=== PATIENT | male | born 1975 | race Two or more races ===

== ENCOUNTER → 2024-03-14 | Outpatient (CLI) | payer BC, SELFPAY ==
[2024-03-14 08:56] LABS: Prostate Specific Antigen 0.98 ng/mL (0-4.00)
[2024-03-14 08:57] LABS: Alanine Aminotransferase 32 U/L (10-49); Albumin, Serum 4.3 gm/dL (3.5-5.0); Albumin/Globulin Ratio 1.6 (1.2-2.2); Alkaline Phosphatase 81 U/L (46-116); Anion Gap 6 (7-16); Aspartate Amino Transferase 22 U/L (0-34); BUN/Creatinine Ratio 18 Ratio (12-20); Bilirubin,Total 1.2 mg/dL (0.3-1.2); Blood Urea Nitrogen 16 mg/dL (9-23); Calcium 9.5 mg/dL (8.3-10.6); Calcium (Corrected) 9.5 mg/dL (8.5-10.1); Carbon Dioxide 28.4 mMol/L (20.0-31.0); Cardiac Risk Estimate 4.4 RATIO (4.0-6.7); Chloride 105 mMol/L (98-107); Cholesterol 185 mg/dL (132-200); Creatinine (Component) 0.9 mg/dL (0.6-1.3); Globulin 2.7 gm/dL (2.3-3.5); Glucose 104 mg/dL (74-106); HDL Cholesterol 42 mg/dL (40-60); LDL Cholesterol,Calculated 120 mg/dL (0-130); Osmolality,Calculated 278 (275-295); Potassium 4.6 mMol/L (3.4-5.1); Sodium 139 mMol/L (136-145); Triglycerides 115 mg/dL (30-150); eGFR > 60 See Note
== END | disposition home or self-care (01) ==
LOC: COPL 06:53
PROVIDERS: PCP Family Medicine; Referring Provider Family Medicine; Visit Provider Family Medicine
DX: Z13.1 Encounter for screening for diabetes mellitus (principal); E78.1 Pure hyperglyceridemia; Z12.11 Encounter for screening for malignant neoplasm of colon
CPT/HCPCS: 36415; 80053; 80061; 84153

== ENCOUNTER → 2024-03-22 | Outpatient (CLI) | payer BC, SELFPAY ==
[2024-03-22 09:22] LABS: OBS Card Expiration Date 2026-09; OBS Card Lot # 23001; OBS Performed By LAB; OBS QC OK? Yes
[2024-03-22 11:09] LABS: OBS Developer Lot # 23003; Occult Blood, Stool Negative (Negative)
== END | disposition home or self-care (01) ==
LOC: SLDO 09:06
PROVIDERS: Referring Provider Family Medicine; Visit Provider Family Medicine
DX: Z12.11 Encounter for screening for malignant neoplasm of colon (principal)
CPT/HCPCS: 82270

== ENCOUNTER 2024-05-20 16:44 | Emergency (ER) | payer BC, SELFPAY ==
[2024-05-20 16:45] VITALS: BMI 27.3
[2024-05-20 17:35] VITALS: BP 115/74; PULSE 77; RESP 18; TEMP 37; O2SAT 97
--- NOTE | 2024-05-20 17:48 | XR_ITS ---
Examination: CT brain head without contrast. 2-D sagittal coronal reconstructions Date and time of exam: May 20, 2024 1759 hrs. Indications: Headaches beginning 2 days ago CTDI: vol (mGy):50.2 DLP: (mGycm):958 Technique: Multiple CT axial sections of the brain have been obtained, 5 mm slice thickness. Contrast has not been administered. 2-D sagittal, coronal reconstructions have been obtained Low dose protocols were performed. One or more of the following dose reduction techniques were used; automated exposure control, adjustment of the mA and/or KV according to patient size, use of iterative reconstruction technique. Findings: No significant ventricular enlargement. Intra-axial or extra-axial hemorrhage density is not seen. No mass effect or midline shift Basal cisterns are not remarkable. Fourth ventricle is midline. Cranial vault intact. Impression: Negative for acute hemorrhage, mass effect or midline shift Advise clinical correlation and follow-up accordingly
--- NOTE | 2024-05-20 17:49 | EDRME_ITS ---
Rapid Medical Screening Exam [facility] Arrival date/time: 05/20/24 16:44 48-year-old male presents to the emergency department today with complaints of headache and dizziness patient does report hitting his head on Chief Complaint: Dizziness Vital signs: Vital Signs Temperature 98.6 F 05/20/24 17:35 Pulse Rate 77 05/20/24 17:35 Respiratory Rate 18 05/20/24 17:35 Blood Pressure 115/74 05/20/24 17:35 Pulse Oximetry (%) 97 05/20/24 17:35 Oxygen Delivery Method Room Air 05/20/24 17:35
--- NOTE | 2024-05-20 17:49 | EKG_ITS ---
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
--- NOTE | 2024-05-20 17:49 | XR_ITS ---
Examination: PA lateral chest 2 views Technique: Upright PA lateral chest 2 views Exam date and time: May 20, 2024 1809 hrs. Comparison April 27, 2020 Indications: Dizziness shortness of breath 3 weeks Findings: Normal heart size Lungs are clear. The osseous structures are intact Impression: No active disease
[2024-05-20 18:23] LABS: Basophils % (Auto) 0 % (0-2.5); Eosinophils # (Auto) 0.2 Thou/mm3 (0.0-0.5); Eosinophils % (Auto) 4 % (0-10); Hematocrit 46.6 % (41.0-53.0); Hemoglobin 15.6 g/dL (13.5-16.0); Immature Granulocytes % (Auto) 0 % (0-0); Immature Granulocytes Auto 0.02 Thou/mm3 (0.00-0.00); Lymphocytes # (Auto) 2.2 Thou/mm3 (1.0-4.8); Lymphocytes % (Auto) 35 % (10-50); Mean Corpuscular HGB Conc 33.5 g/dl (31.0-37.0); Mean Corpuscular Volume 87 fL (80-100); Monocytes # (Auto) 0.5 Thou/mm3 (0.0-0.8); Monocytes % (Auto) 8 % (0-12); Neutrophils # (Auto) 3.2 Thou/mm3 (1.8-7.7); Neutrophils % (Auto) 52 % (37-80); Nucleated Red Blood Cell % 0 /100 WBC (0); Platelet Count 233 Thou/mm3 (140-440); Red Blood Count 5.38 Miln/mm3 (4.50-5.90); White Blood Count 6.2 Thou/mm3 (3.8-10.6)
[2024-05-20 18:28] LABS: Alanine Aminotransferase 34 U/L (10-49); Albumin, Serum 4.3 gm/dL (3.5-5.0); Albumin/Globulin Ratio 1.5 (1.2-2.2); Alkaline Phosphatase 89 U/L (46-116); Anion Gap 5 (7-16); Aspartate Amino Transferase 24 U/L (0-34); BUN/Creatinine Ratio 18 Ratio (12-20); Blood Urea Nitrogen 20 mg/dL (9-23); Calcium 9.6 mg/dL (8.3-10.6); Calcium (Corrected) 9.6 mg/dL (8.5-10.1); Carbon Dioxide 30.2 mMol/L (20.0-31.0); Chloride 105 mMol/L (98-107); Creatinine (Component) 1.1 mg/dL (0.6-1.3); Estimated Creatinine Clearance 80.3 mL/min (>60); Globulin 2.9 gm/dL (2.3-3.5); Glucose 76 mg/dL (74-106); Osmolality,Calculated 281 (275-295); Potassium 5.1 mMol/L (3.4-5.1); Sodium 140 mMol/L (136-145); Total Protein 7.2 gm/dL (5.7-8.2); Troponin I < 0.002 ng/mL (0.0-0.045); eGFR > 60 See Note
[2024-05-20 21:24] VITALS: BP 128/87; PULSE 55; RESP 18; TEMP 36.8; O2SAT 98
[2024-05-21 06:26] VITALS: BP 135/72; PULSE 78; RESP 18; TEMP 36.8; O2SAT 100
--- NOTE | 2024-05-21 07:25 | EDNOTE_ITS ---
ED General RME/HPI General Chief complaint: Dizziness Stated complaint: DIZZY X3 DAYS Arrival date/time: 05/20/24 16:44 RME / HPI RME / HPI narrative: 05/20/24 16:44 RME: 48-year-old male presents to the emergency department today with complaints of headache and dizziness patient does report hitting his head on CHELSEY HPI: 48-year-old male with a history of palpitations who presents to the emergency department with approximately 2-1/2 days worth of fleeting, sporadic dizziness. He awoke with some mild dizziness on , it was to the point where while he was working out he actually fell and hit his head on one of the corners of the weights. He describes the episodes as feeling like he is going to stumble backwards is brief and self resolves. It does not appear to be associated with walking or sitting as he has had episodes in both positions. He denies headache. He denies associated nausea and vomiting. He does not feel that closing his eyes help or worsens the symptoms. Related Data Home Medications ?Medication ?Instructions ?Recorded ?Confirmed metoprolol succinate 50 mg capsule 50 mg PO QDAY 04/2704/27/20 sprinkle, ext. release 24 hr Previous Rx's ?Medication ?Instructions ?Recorded albuterol sulfate 90 mcg/actuation 1 inh inhalation QI D PRN shortness 04/27/20 aerosol inhaler (ProAir HFA) of breath or wheezing #18 grams azithromycin 500 mg tablet See Rx Instructions PO .COM PLEX #3 04/27/20 (Zithromax TRI-RILEY) tabs Allergies Allergy/AdvReac Type Severity Reaction Status Date / Time No Known Allergies Allergy Verified 05/20/24 16:47 Review of Systems Review of Systems Systems Reviewed: All systems reviewed, normal except as documented ED Exam Narrative Physical exam: GENERAL APPEARANCE: AxOx4, generally well-appearing, no acute distress. HEENT: NC, AT. MMM. EOMI, clear conjunctiva, oropharynx clear. NECK: Supple without lymphadenopathy. No stiffness or restricted ROM. HEART: Normal rate and regular rhythm, normal S1/S1, no m/r/g LUNGS: CTAB, moving air well. No crackles or wheezes are heard. ABDOMEN: Soft, nontender, nondistended with good bowel sounds heard. BACK: No midline C/T/L spine pain or deformity, No CVAT, no obvious deformity. EXTREMITIES: Without cyanosis, clubbing or edema. MUSCULOSKELETAL: FROM of all major joints, no chest tenderness NEUROLOGICAL: Grossly nonfocal. Alert and oriented, moving all 4 extremities. CN not formally tested but appear grossly intact. Romberg negative. Observed to ambulate with normal gait. Skin: Warm and dry without any rash. Course Quality Measures none Orders Category Date Time Status EKG (ED ONLY) *Do not use* NOW Care 05/20/24 17:[address] head/brain wo con Stat Exams 05/20/24 17:48 Completed EKG (ED Only) Stat Exams 05/20/24 17:49 Draft XR chest 2V Stat Exams 05/20/24 17:49 Completed CBC Stat Lab 05/20/24 17:55 Completed Comprehensive Metabolic Panel Stat Lab 05/20/24 17:55 Completed Troponin I Stat Lab 05/20/24 17:55 Completed Vital Signs Vital signs: Vital Signs Temperature 98.6 F 05/20/24 17:35 Pulse Rate 77 05/20/24 17:35 Respiratory Rate 18 05/20/24 17:35 Blood Pressure 115/74 05/20/24 17:35 Pulse Oximetry (%) 97 05/20/24 17:35 Oxygen Delivery Method Room Air 05/20/24 17:35 SpO2 97% on room air, patient is not hypoxic [facility] Patient data External records reviewed:: [facility] previous records Clinical information provided by:: patient Social determinants that could affect healthcare access:: none Patient has the following chronic illnesses:: None How is presenting disease/condition affected by chronic disease/condition?: no chronic disease Evaluation data The following diagnostics were reviewed and interpreted by me:: lab results, radiology exam(s) and EKG tracing(s) Lab and/or radiology exams considered but not ordered:: As per narrative Interpretation Summary: None Medications Medications considered but not ordered:: None Medication administrations:: None Consultations Consultation(s) initiated? (list below): No Diagnosis Differential Diagnosis ED Complaint MDM: Dehydration, orthostasis, peripheral vertigo, central vertigo Most likely diagnosis given after review of the tests above:: See below Admission Indicated Admission indicated?: not indicated Explain why admission is indicated or not indicated:: As per narrative Admission Request Was there a request for admission?: No Disposition Plan Disposition Plan: Discharge Discharge Attestation Discharge Attestation: The patient and all family members were given an opportunity to ask questions and understood the discharge instructions. Discharge instructions specifically effects, indications for sooner follow up or return to the emergency department, and the expected course of current diagnosis. Patient condition: Stable Medical Decision Making MDM Narrative MDM Narrative: Mr. Park presents to the emergency department with several episodes of fleeting, brief, unprovoked lightheadedness/dizziness. Does not appear to be positional in nature. He is otherwise asymptomatic with a normal neurologic exam here. Laboratory testing was sent via the RME process which shows no acute findings. Head CT sent via the RME process ulcers noted no acute findings. However with concerns for central vertigo, ideally would be whether or not he requires an MRI to rule out posterior versus cerebellar lesions. On exam he has no deficits with coordination, has a negative Romberg, with a steady gait. As this condition is sporadic, does not appear to be an issue here at this point, he is appropriate for outpatient follow-up. He has been given instructions to follow- up with his primary care physician and to monitor for the pattern of symptoms. If worsening he is to return to the emergency department, otherwise can follow- up with your primary care doctor for possible referral to ENT and or an outpatient MRI. Do not feel he requires an MRI here today. Differential Diagnosis Differential Diagnosis: Dehydration, orthostasis, peripheral vertigo, central vertigo Lab Data 05/20/24 17:55 05/20/24 17:55 Labs: Lab Results 05/20/24 Range/Units 17:55 WBC 6.2 (3.8-10.6) Thou/mm3 RBC 5.38 (4.50-5.90) Miln/mm3 Hgb 15.6 (13.5-16.0) g/dL Hct 46.6 (41.0-53.0) % MCV 87 (80-100) fL MCH 29.0 (25.0-35.0) pg MCHC 33.5 (31.0-37.0) g/dl RDW Std Deviation 41.0 (35.1-43.9) fL Plt Count 233 (140-440) Thou/mm3 Neut % (Auto) 52 (37-80) % Lymph % (Auto) 35 (10-50) % [place] % (Auto) 8 (0-12) % Eos % (Auto) 4 (0-10) % Baso % (Auto) 0 (0-2.5) % Neut # (Auto) 3.2 (1.8-7.7) Thou/mm3 Lymph # (Auto) 2.2 (1.0-4.8) Thou/mm3 [place] # (Auto) 0.5 (0.0-0.8) Thou/mm3 Eos # (Auto) 0.2 (0.0-0.5) Thou/mm3 Baso # (Auto) 0.0 (0.0-0.2) Thou/mm3 Immature Gran # (Auto) 0.02 H (0.00-0.00) Thou/mm3 Absolute Nucleated RBC 0.00 (0.00-0.00) Thou/mm3 Immature Gran % 0 (0-0) % Nucleated RBC % 0 (0) /100 WBC Sodium 140 (136-145) mMol/L Potassium 5.1 (3.4-5.1) mMol/L Chloride 105 (98-107) mMol/L Carbon Dioxide 30.2 (20.0-31.0) mMol/L Anion Gap 5 L (7-16) BUN 20 (9-23) mg/dL Creatinine 1.1 (0.6-1.3) mg/dL Estim Creat Clear Calc 80.3 (>60) mL/min eGFR > 60 (60 - ) See Note BUN/Creatinine Ratio 18 (12-20) Ratio Glucose 76 (74-106) mg/dL Calculated Osmolality 281 (275-295) Calcium 9.6 (8.3-10.6) mg/dL Corrected Calcium 9.6 (8.5-10.1) mg/dL Total Bilirubin 1.0 (0.3-1.2) mg/dL AST 24 (0-34) U/L ALT 34 (10-49) U/L Alkaline Phosphatase 89 (46-116) U/L Troponin I < 0.002 (0.0-0.045) ng/mL Total Protein 7.2 (5.7-8.2) gm/dL Albumin 4.3 (3.5-5.0) gm/dL Globulin 2.9 (2.3-3.5) gm/dL Albumin/Globulin Ratio 1.5 (1.2-2.2) Discharge Plan Plan Patient Disposition: HOME (Self Care) Prescriptions/Referrals Prescriptions/Med Rec: No Action metoprolol succinate 50 mg Capsule,Sprinkle,Er 24hr 50 mg PO QDAY azithromycin [Zithromax TRI-RILEY] 500 mg tablet See Rx Instructions .ROUTE .COMPLEX Qty: 3 0RF Rx Instructions: take 500 mg today (day 1), then 250 mg for 4 days (days 2-5) albuterol sulfate [ProAir HFA] 90 mcg/actuation HFA aerosol inhaler 1 inh inhalation QID PRN (Reason: shortness of breath or wheezing) Qty: 18 0RF Referrals: Antony Trejo MD [Primary Care Provider] - In 1 week Problem List Clinical Impression: Dizziness Patient/Caregiver Discharge Instructions Education Materials: ED Dizziness, Uncertain Cause Additional Instructions: Levi un seguimiento con mckeon m?dico de atenci?n primaria en 2 a 3 d?as para volver a controlarlo. Puede regresar al departamento de emergencias yeung pronto bunny los s?ntomas empeoren o si nota alg?n problema nuevo que le preocupe. Print Language: Estonian Stand Alone Forms: Mariola Award Info., Patient Portal Info Letter
[2024-05-21 07:26] VITALS: BP 135/72; PULSE 70; RESP 18; TEMP 36.6; O2SAT 99
== END 2024-05-21 07:59 | disposition home or self-care (01) ==
PROVIDERS: Nurse Practitioner Primary Care; Emergency Provider Emergency Medicine; PCP Family Medicine
DX: R42 Dizziness and giddiness (principal); R51.9 Headache, unspecified
CPT/HCPCS: 36415; 70450; 71046; 80053; 84484; 85025; 93005; 99284

== ENCOUNTER 2024-07-28 08:14 | Emergency (ER) | payer BC, SELFPAY ==
[2024-07-28 08:41] VITALS: BP 131/77; PULSE 84; RESP 18; TEMP 36.6; O2SAT 97; BMI 27.3
--- NOTE | 2024-07-28 08:50 | XR_ITS ---
Examination: Wrist, right 3 views Technique: Wrist AP, oblique, lateral 3 views Date and time of exam: July 28, 20242057 hrs. Indications: Patient fell today with injury to the wrist, wrist pain Findings: No fracture or dislocation No foreign body Impression: No fracture or dislocation
--- NOTE | 2024-07-28 08:50 | XR_ITS ---
Examination: Hand, right 3 views Technique: Hand AP, oblique, lateral 3 views Date and time of exam: July 28, 2024 0850 hrs. Indications: Patient fell today with injury to the hand, hand pain Findings: No fracture or dislocation. No foreign body Impression: No fracture or dislocation
--- NOTE | 2024-07-28 08:51 | PD.EDFALL ---
ED Fall Injury RME/HPI General Chief Complaint: Fall Stated Complaint: Right wrist injury Time Seen by Provider: 07/28/24 08:40 Arrival date/time: 07/28/24 08:14 48-year-old male with medical history significant for hypertension presents emergency department for complaints of right wrist pain after fall yesterday Limitations: no limitations Related Data Home Medications ?Medication ?Instructions ?Recorded ?Confirmed metoprolol succinate 50 mg capsule 50 mg PO QDAY 04/27/20 04/27/20 sprinkle, ext. release 24 hr Previous Rx's ?Medication ?Instructions ?Recorded albuterol sulfate 90 mcg/actuation 1 inh inhalation QID PRN shortness 04/27/20 aerosol inhaler (ProAir HFA) of breath or wheezing #18 grams azithromycin 500 mg tablet See Rx Instructions PO .COMPLEX #3 04/27/20 (Zithromax TRI-RILEY) tabs ibuprofen 800 mg tablet 800 mg PO TID PRN pain #30 tabs 07/28/24 Allergies Allergy/AdvReac Type Severity Reaction Status Date / Time No Known Allergies Allergy Verified 07/28/24 08:17 Review of Systems Review of Systems Systems Reviewed: All systems reviewed, normal except as documented Constitutional Constitutional: Reports system reviewed and no additional complaints, except as documented, Denies fever(s) and Denies headache(s) Eyes Eyes: Reports system reviewed and no additional complaints, except as documented and Denies blurry vision ENT Ears, Nose, Mouth, and Throat: Reports system reviewed and no additional complaints, except as documented, Denies headache(s), Denies nasal congestion and Denies nasal discharge Cardiovascular Cardiovascular: Reports system reviewed and no additional complaints, except as documented, Denies chest pain and Denies dyspnea Respiratory Respiratory: Reports system reviewed and no additional complaints, except as documented, Denies chest congestion, Denies cough and Denies dyspnea Gastrointestinal Gastrointestinal: Reports system reviewed and no additional complaints, except as documented and Denies abdominal pain Musculoskeletal Musculoskeletal: Reports system reviewed and no additional complaints, except as documented, Reports arthralgias, Denies deformity and Denies joint swelling Integumentary/Breasts Skin/Breast: Reports system reviewed and no additional complaints, except as documented and Denies rash Neurologic Neurologic: Reports system reviewed and no additional complaints, except as documented, Reports as per HPI and Denies headache(s) Past Medical History Past Medical History CARDIAC: Positive Cardiac Disorders and Hypertension; Negative Congestive Heart Failure RESPIRATORY: Positive Asthma; Negative Chronic Obstructive Pulmonary Disease (COPD) GENITOURINARY: Negative Renal Disease ENDOCRINE: Negative Diabetes Mellitus Type 1 or Diabetes Mellitus Type 2 Social History SMOKING STATUS: Never smoker ED Exam General Limitations: Present no limitations General appearance: Present alert and in no apparent distress Head Head exam: Present atraumatic Eye Eye exam: Present normal appearance, PERRL and EOMI ENT ENT exam: Present normal exam, normal oropharynx and mucous membranes moist Neck Neck exam: Present normal inspection, full ROM and trachea midline Chest Chest inspection: Present normal inspection and symmetric chest wall rise Respiratory Respiratory exam: Present normal lung sounds bilaterally Cardiovascular Cardiovascular exam: Present regular rate, normal rhythm and normal heart sounds Abdominal Exam Abdominal exam: Present soft and normal bowel sounds Extremities Exam Extremities exam: Present full ROM, tenderness, normal capillary refill and joint swelling Back Exam Back exam: Present normal inspection and full ROM Neurological Exam Neurological exam: Present alert, oriented X3 and CN II-XII intact Psychiatric Psychiatric exam: Present normal affect and normal mood Skin Skin exam: Present warm, dry, intact and normal color Course Quality Measures none Orders Category Date Time Status abraham wrap [Splint / Immobilizer] STAT Care 07/28/24 11:32 Completed XR hand comp RT min 3V Stat Exams 07/28/24 08:50 Completed XR wrist comp RT min 3V Stat Exams 07/28/24 08:50 Completed Vital Signs Vital signs: Vital Signs Temperature 97.9 F 07/28/24 08:41 Pulse Rate 84 07/28/24 08:41 Respiratory Rate 18 07/28/24 08:41 Blood Pressure 131/77 H 07/28/24 08:41 Pulse Oximetry (%) 97 07/28/24 08:41 O2 saturation 97% on room air within normal limits Fall MDM Narrative MDM Narrative:: 48-year-old male with medical history significant for hypertension presents emergency department for complaints of right wrist pain after fall yesterday On exam patient is tenderness to the right wrist and right hand no swelling or bruising noted Imaging obtained no acute fracture dislocation noted Patient placed in Abraham wrap Splint the patient and pain persist or worsens he may need advanced imaging for further evaluation Patient data External records reviewed:: [facility] previous records Clinical information provided by:: patient Social determinants that could affect healthcare access:: none Patient has the following chronic illnesses:: None How is presenting disease/condition affected by chronic disease/condition?: no chronic disease Evaluation data The following diagnostics were reviewed and interpreted by me:: radiology exam(s) Lab and/or radiology exams considered but not ordered:: Radiology obtain Interpretation Summary: Reviewed by me Medications / Prescriptions Medications or Prescriptions considered but not ordered:: Given Medication administrations:: Given Consultations Consultation(s) initiated? (list below): No Diagnosis Fall Differential Diagnosis: other (Wrist fracture, wrist sprain) Most likely diagnosis given after review of the tests above:: Wrist pain Admission Indicated Admission indicated?: not indicated Admission Request Was there a request for admission?: No Disposition Plan Disposition Plan: Discharge Discharge Attestation Discharge Attestation: The patient and all family members were given an opportunity to ask questions and understood the discharge instructions. Discharge instructions specifically effects, indications for sooner follow up or return to the emergency department, and the expected course of current diagnosis. Patient condition: Stable Discharge Plan Plan Patient Disposition: HOME (Self Care) Disposition Comment: Stable Prescriptions/Referrals Prescriptions/Med Rec: New ibuprofen 800 mg tablet 800 mg PO TID PRN (Reason: pain) Qty: 30 0RF No Action metoprolol succinate 50 mg Capsule,Sprinkle,Er 24hr 50 mg PO QDAY azithromycin [Zithromax TRI-RILEY] 500 mg tablet See Rx Instructions .ROUTE .COMPLEX Qty: 3 0RF Rx Instructions: take 500 mg today (day 1), then 250 mg for 4 days (days 2-5) albuterol sulfate [ProAir HFA] 90 mcg/actuation HFA aerosol inhaler 1 inh inhalation QID PRN (Reason: shortness of breath or wheezing) Qty: 18 0RF Referrals: Antony Trejo MD [Primary Care Provider] - 07/31/24 Problem List Clinical Impression: Right wrist sprain Patient/Caregiver Discharge Instructions Education Materials: ED Wrist Sprain Additional Instructions: Please follow up with your primary care doctor in the next 24-48hrs for any worsening symptoms return here immediately If your symptoms persist or worsen you may need an MRI for further evaluation Print Language: Japanese Stand Alone Forms: Mariola Award Info., Work/School Release, Patient Portal Info Letter PA/CARLO Supervising Physician PA/CARLO Supervising Physician: dr moreno
--- NOTE | 2024-07-28 13:07 | PRELIM_ITS ---
Radiographs of the right hand (3 views). July 28, 2024 0859 hours Clinical history: Trauma No prior study is available for comparison. Findings: The visualized bones are of normal configuration and density. The visualized joints are normal in configuration and alignment. There is no fracture or dislocation. The periarticular soft tissues are normal. Impression: No evidence of fracture or dislocation. Report Electronically Signed By: Omi Marie 07/28/2024 1:07:24 PM [EST]
--- NOTE | 2024-07-28 13:07 | PRELIM_ITS ---
Radiographs of the right wrist (3 views) July 28, 2024 0859 hours Clinical history: Trauma No prior study is available for comparison. Findings: There is no evidence of fracture or dislocation. The radiocarpal, carpometacarpal and intercarpal joints are normal in configuration and alignment. No bony abnormality is identified. The periarticular soft tissues are normal. Impression: No evidence of fracture or dislocation. Report Electronically Signed By: Omi Marie 07/28/2024 1:06:59 PM [EST]
== END 2024-07-28 11:58 | disposition home or self-care (01) ==
PROVIDERS: Emergency Provider Emergency Medicine; PCP Family Medicine
DX: S63.501A Unspecified sprain of right wrist, initial encounter (principal); W19.XXXA Unspecified fall, initial encounter; I10 Essential (primary) hypertension
CPT/HCPCS: 73110; 73130; 99283

== ENCOUNTER → 2025-01-31 | Outpatient (CLI) | payer BC, SELFPAY ==
[2025-01-31 08:45] LABS: Prostate Specific Antigen 1.01 ng/mL (0-4.00)
[2025-01-31 08:55] LABS: Alanine Aminotransferase 35 U/L (10-49); Albumin, Serum 4.2 gm/dL (3.5-5.0); Albumin/Globulin Ratio 1.7 (1.2-2.2); Alkaline Phosphatase 71 U/L (46-116); Anion Gap 7 (7-16); Aspartate Amino Transferase 29 U/L (0-34); BUN/Creatinine Ratio 15 Ratio (12-20); Bilirubin,Total 0.9 mg/dL (0.3-1.2); Blood Urea Nitrogen 15 mg/dL (9-23); Calcium 9.3 mg/dL (8.3-10.6); Calcium (Corrected) 9.3 mg/dL (8.5-10.1); Carbon Dioxide 28.6 mMol/L (20.0-31.0); Cardiac Risk Estimate 3.7 RATIO (4.0-6.7); Chloride 107 mMol/L (98-107); Cholesterol 164 mg/dL (132-200); Creatinine (Component) 1.0 mg/dL (0.6-1.3); Globulin 2.5 gm/dL (2.3-3.5); Glucose 107 mg/dL (74-106); HDL Cholesterol 44 mg/dL (40-60); LDL Cholesterol,Calculated 94 mg/dL (0-130); Osmolality,Calculated 285 (275-295); Potassium 5.4 mMol/L (3.4-5.1); Sodium 143 mMol/L (136-145); Total Protein 6.7 gm/dL (5.7-8.2); Triglycerides 131 mg/dL (30-150); eGFR > 60 See Note
== END | disposition home or self-care (01) ==
LOC: COPL 07:03
PROVIDERS: PCP Family Medicine; Referring Provider Family Medicine; Visit Provider Family Medicine
DX: E78.1 Pure hyperglyceridemia (principal); N42.9 Disorder of prostate, unspecified; Z13.1 Encounter for screening for diabetes mellitus
CPT/HCPCS: 36415; 80053; 80061; 84153

== ENCOUNTER → 2025-02-08 | Outpatient (CLI) | payer BC, SELFPAY ==
[2025-02-08 17:01] LABS: Albumin, Serum 4.5 gm/dL (3.5-5.0); Anion Gap 12 (7-16); BUN/Creatinine Ratio 15 Ratio (12-20); Blood Urea Nitrogen 15 mg/dL (9-23); Calcium 8.7 mg/dL (8.3-10.6); Calcium (Corrected) 8.7 mg/dL (8.5-10.1); Carbon Dioxide 26.1 mMol/L (20.0-31.0); Chloride 104 mMol/L (98-107); Creatinine (Component) 1.0 mg/dL (0.6-1.3); Glucose 136 mg/dL (74-106); Osmolality,Calculated 285 (275-295); Phosphorous 3.6 mg/dL (2.4-5.1); Potassium 3.9 mMol/L (3.4-5.1); Sodium 142 mMol/L (136-145); eGFR > 60 See Note
== END | disposition home or self-care (01) ==
LOC: COPL 15:30
PROVIDERS: PCP Family Medicine; Referring Provider Family Medicine; Visit Provider Family Medicine
DX: Z13.1 Encounter for screening for diabetes mellitus (principal)
CPT/HCPCS: 36415; 80069

== ENCOUNTER → 2025-03-19 | Outpatient (CLI) | payer BC, SELFPAY ==
[2025-03-19 09:43] LABS: OBS Performed By LAB; OBS QC OK? Yes
[2025-03-19 12:27] LABS: OBS Developer Expiration Date 2-28-2027; OBS Developer Lot # 4-24-551749; Occult Blood, Stool Negative (Negative)
== END | disposition home or self-care (01) ==
LOC: SLDO 09:33
PROVIDERS: PCP Family Medicine; Referring Provider Family Medicine; Visit Provider Family Medicine
DX: Z12.11 Encounter for screening for malignant neoplasm of colon (principal)
CPT/HCPCS: 82270

== ENCOUNTER 2025-04-05 22:14 | Emergency (ER) | payer BC, SELFPAY ==
[2025-04-05 22:16] VITALS: BMI 28.1
--- NOTE | 2025-04-05 22:20 | EKG_ITS ---
[facility] Test Date: 2025-04-05 Pat Name: ROSMERY RICHARD Department: Room: - Gender: Male Manager Outpatient: : 1975 Requested By: Santos Mixon Order Number: [id number] Reading MD: Santos Mixon Measurements Intervals [place] Rate: 76 P: 58 [place]: 141 QRS: 67 QRSD: 96 T: 61 QT: 375 QTc: 422 Interpretive Statements SINUS RHYTHM Compared to ECG 05/20/2024 17:51:38 Early repolarization no longer present /store/S0/[id number].pdf
[2025-04-05 22:22] VITALS: BP 150/81; PULSE 72; RESP 18; TEMP 36.9; O2SAT 97
--- NOTE | 2025-04-05 22:41 | XR_ITS ---
EXAMINATION: PA lateral chest 2 views TECHNIQUE: Upright PA lateral chest 2 views Date and time: April 05, 2025, 11:12 p.m. INDICATIONS: Chest pain shortness of breath beginning 5 days ago FINDINGS: Normal heart size Lungs are clear. Osseous structures are intact IMPRESSION: No active disease
--- NOTE | 2025-04-05 23:14 | EDNOTE_ITS ---
Upper Respiratory Inf. RME/HPI General Chief Complaint: Chest Pain Stated Complaint: CHEST PAIN, COUGH, BACK PAIN Time Seen by Provider: 04/05/25 22:55 Arrival date/time: 04/05/25 22:14 49M with history of HTN and unknown cardiac dysrhythmia (on metoprolol) presents to ED with 5 days of non-bloody cough and some CP and back pain when coughing. Limitations: no limitations Related Data Home Medications ?Medication ?Instructions ?Recorded ?Confirmed metoprolol succinate 50 mg capsule 50 mg PO QDAY 04/2704/27/20 sprinkle, ext. release 24 hr Previous Rx's ?Medication ?Instructions ?Recorded albuterol sulfate 90 mcg/actuation 1 inh inhalation QI D PRN shortness 04/27/20 aerosol inhaler (ProAir HFA) of breath or wheezing #18 grams azithromycin 500 mg tablet See Rx Instructions PO .COM PLEX #3 04/27/20 (Zithromax TRI-RILEY) tabs ibuprofen 800 mg tablet 800 mg PO TID PRN pain #30 t abs 07/28/24 Allergies Allergy/AdvReac Type Severity Reaction Status Date / Time No Known Allergies Allergy Verified 04/05/25 22:15 Review of Systems Review of Systems Systems Reviewed: All systems reviewed, normal except as documented Respiratory Respiratory: Reports as per HPI, Reports cough and Reports pain with cough (back and chest) Past Medical History Past Medical History CARDIAC: Positive Cardiac Disorders and Hypertension; Negative Congestive Heart Failure RESPIRATORY: Positive Asthma; Negative Chronic Obstructive Pulmonary Disease (COPD) GENITOURINARY: Negative Renal Disease ENDOCRINE: Negative Diabetes Mellitus Type 1 or Diabetes Mellitus Type 2 Social History SMOKING STATUS: Never smoker ED Exam General Limitations: Present no limitations General appearance: Present alert and in no apparent distress Head Head exam: Present atraumatic Neck Neck exam: Present normal inspection, full ROM and trachea midline Chest Chest inspection: Present normal inspection and symmetric chest wall rise Respiratory Respiratory exam: Present normal lung sounds bilaterally Neurological Exam Neurological exam: Present alert and oriented X3 Psychiatric Psychiatric exam: Present normal affect and normal mood Skin Skin exam: Present warm, dry, intact and normal color Course Quality Measures none Orders Category Date Time Status EKG (ED ONLY) *Do not use* NOW Care 04/05/25 22:20 Completed EKG (ED Only) Stat Exams 04/05/25 22:20 Draft XR chest 2V Stat Exams 04/05/25 22:41 Completed CBC Stat Lab 04/06/25 00:45 Completed CMP [Comprehensive Metabolic Panel] Stat Lab 04/06/25 00:45 Completed D-Dimer Stat Lab 04/06/25 00:45 Completed Troponin I Stat Lab 04/06/25 00:45 Completed dexAMETHasone INJ [Decadron Inj] Med 04/06/25 00:10 Discontinued 10 mg PO X1 ONE Vital Signs Vital signs: Vital Signs Temperature 98.4 F 04/05/25 22:22 Pulse Rate 72 04/05/25 22:22 Respiratory Rate 18 04/05/25 22:22 Blood Pressure 150/81 H 04/05/25 22:22 Pulse Oximetry (%) 97 04/05/25 22:22 Oxygen Delivery Method Room Air 04/05/25 22:22 O2 at 97% on RA and WNLs Upper Respiratory Infection MDM Narrative MDM Narrative:: 49M with history of HTN and unknown cardiac dysrhythmia (on metoprolol) presents to ED with 5 days of non-bloody cough and some CP and back pain when coughing. Physical exam reveals clear lungs and normal WOB. Patient is afebrile, calm, and alert. EKG is NSR. CXR unremarkable. No leukocytosis. CMP unremarkable. Trop and D- dimer normal. Steroids improved symptoms. Patient data External records reviewed:: [facility] previous records Clinical information provided by:: patient Social determinants that could affect healthcare access:: none Patient has the following chronic illnesses:: cardiac dysrhythmia How is presenting disease/condition affected by chronic disease/condition?: uneffected by Evaluation data The following diagnostics were reviewed and interpreted by me:: radiology exam(s) and EKG tracing(s) Lab and/or radiology exams considered but not ordered:: ordered Interpretation Summary: above Medications / Prescriptions Medications or Prescriptions considered but not ordered:: ordered Medication administrations:: Medication Administration History Discontinued Medications Dexamethasone Sodium Phosphate (Dexamethasone Sod Phos Inj 10 Mg/Ml Vial) 10 mg PO X1 ONE Stop: 04/06/25 00:11 Last Admin: 04/06/25 00:30 Dose: 10 mg Documented By: JESÚS Comments: ORAL ADMINISTRATION above Consultations Consultation(s) initiated? (list below): No Diagnosis Upper Respiratory Differential Diagnosis: upper respiratory infection, croup, otitis media, sinusitis, viral infection, bronchitis, influenza, pharyngitis and other (CAP, PE) Most likely diagnosis given after review of the tests above:: URI Admission Indicated Admission indicated?: not indicated Admission Request Was there a request for admission?: No Disposition Plan Disposition Plan: Discharge Discharge Attestation Discharge Attestation: The patient and all family members were given an opportunity to ask questions and understood the discharge instructions. Discharge instructions specifically effects, indications for sooner follow up or return to the emergency department, and the expected course of current diagnosis. Patient condition: Stable Discharge Plan Plan Patient Disposition: HOME (Self Care) Discharge Disposition comment: Stable Prescriptions/Referrals Prescriptions/Med Rec: No Action metoprolol succinate 50 mg Capsule,Sprinkle,Er 24hr 50 mg PO QDAY azithromycin [Zithromax TRI-RILEY] 500 mg tablet See Rx Instructions .ROUTE .COMPLEX Qty: 3 0RF Rx Instructions: take 500 mg today (day 1), then 250 mg for 4 days (days 2-5) albuterol sulfate [ProAir HFA] 90 mcg/actuation HFA aerosol inhaler 1 inh inhalation QID PRN (Reason: shortness of breath or wheezing) Qty: 18 0RF ibuprofen 800 mg tablet 800 mg PO TID PRN (Reason: pain) Qty: 30 0RF Referrals: Antony Trejo MD [Primary Care Provider, Family Practice] - In 1 week Problem List Clinical Impression: URI (upper respiratory infection) Patient/Caregiver Discharge Instructions Education Materials: ED URI, Viral, No Abx (Adult) Additional Instructions: Please follow-up with PCP within 24-48 hours and return immediately if symptoms worsen. Ibuprofen/Tylenol can be used simultaneously for greater fever/pain control. Benadryl is good for cough, congestion, and sleep. Print Language: Cypriot Stand Alone Forms: Patient Portal Info Letter PA/CARLO Supervising Physician HIRAL/CARLO Supervising Physician: Dr. Ulloa
[2025-04-06 00:26] VITALS: BP 134/74; PULSE 64; RESP 18; TEMP 36.6; O2SAT 98
[2025-04-06 00:59] LABS: Basophils # (Auto) 0.0 Thou/mm3 (0.0-0.2); Basophils % (Auto) 0 % (0-2.5); Eosinophils # (Auto) 0.3 Thou/mm3 (0.0-0.5); Eosinophils % (Auto) 6 % (0-10); Hematocrit 40.4 % (41.0-53.0); Hemoglobin 13.8 g/dL (13.5-16.0); Immature Granulocytes Auto 0.01 Thou/mm3 (0.00-0.00); Lymphocytes # (Auto) 1.7 Thou/mm3 (1.0-4.8); Lymphocytes % (Auto) 33 % (10-50); Mean Corpuscular HGB Conc 34.2 g/dl (31.0-37.0); Mean Corpuscular Hemoglobin 29.2 pg (25.0-35.0); Mean Corpuscular Volume 85 fL (80-100); Monocytes # (Auto) 0.6 Thou/mm3 (0.0-0.8); Monocytes % (Auto) 12 % (0-12); Neutrophils # (Auto) 2.6 Thou/mm3 (1.8-7.7); Neutrophils % (Auto) 49 % (37-80); Nucleated Red Blood Cell # 0.00 Thou/mm3 (0.00-0.00); Nucleated Red Blood Cell % 0 /100 WBC (0); Platelet Count 211 Thou/mm3 (140-440); RDW Standard Deviation 42.5 fL (35.1-43.9); Red Blood Count 4.73 Miln/mm3 (4.50-5.90); White Blood Count 5.3 Thou/mm3 (3.8-10.6)
[2025-04-06 01:20] LABS: Alanine Aminotransferase 37 U/L (10-49); Albumin, Serum 4.6 gm/dL (3.5-5.0); Albumin/Globulin Ratio 1.6 (1.2-2.2); Alkaline Phosphatase 84 U/L (46-116); Anion Gap 6 (7-16); Aspartate Amino Transferase 32 U/L (0-34); BUN/Creatinine Ratio 20 Ratio (12-20); Bilirubin,Total 0.6 mg/dL (0.3-1.2); Blood Urea Nitrogen 22 mg/dL (9-23); Calcium 9.1 mg/dL (8.3-10.6); Calcium (Corrected) 9.1 mg/dL (8.5-10.1); Carbon Dioxide 25.7 mMol/L (20.0-31.0); Chloride 108 mMol/L (98-107); Creatinine (Component) 1.1 mg/dL (0.6-1.3); D-Dimer < 250 ng/mL (<600); Estimated Creatinine Clearance 83.8 mL/min (>60); Globulin 2.8 gm/dL (2.3-3.5); Glucose 117 mg/dL (74-106); Osmolality,Calculated 283 (275-295); Potassium 4.6 mMol/L (3.4-5.1); Sodium 140 mMol/L (136-145); Total Protein 7.4 gm/dL (5.7-8.2); Troponin I < 0.002 ng/mL (0.0-0.045); eGFR > 60 See Note
== END 2025-04-06 01:44 | disposition home or self-care (01) ==
PROVIDERS: Physician Assistant; Emergency Provider Emergency Medicine; PCP Family Medicine
DX: J06.9 Acute upper respiratory infection, unspecified (principal); I10 Essential (primary) hypertension
CPT/HCPCS: 36415; 71046; 80053; 84484; 85025; 85379; 93005; 99283; J1100